=== PATIENT | female | born 1955 | race Caucasian/White ===

== ENCOUNTER → 2016-05-22 | Day surgery (SDC) | payer OTHER ==
[~2016-05-22] MED LIST: THROMBIN (RECOMBINANT) 5,000 UNIT VIAL TP ONE
--- NOTE | 2016-05-22 10:54 | MA ---
Diagnostic Digital Right Mammogram History: Post stereotactic biopsy Comparison:April 19 and 2015 Technique: 2 views. Breast Density: C Findings: The calcifications have been adequately sampled.. Impression:Excellent status. We will await histologic evaluation. If benign, six-month follow-up mammogram is recommended to reest ablish new baseline.
--- NOTE | 2016-05-22 14:58 | MA ---
Stereotactic Core Biopsy Right Breast History: Suspicious microcalcifications right breast. Technique: Following informed consent (which included infection, bleeding and failure to obtain suffi cient specimens for diagnosis), the patient was placed prone on the stereotactic core biopsy table an d the breast was suspended through the open space in the table. A group of calcifications was identif ied. These microcalcifications were localized from a lateral to medial approach. The skin was then pr epped in sterile fashion. Following local anesthesia with 1% lidocaine, lidocaine mixed with epinephr ine was injected deeper within the breast tissue. A small skin chepe was placed on the skin surface t hrough which the 9-gauge Suros vacuum-assisted core biopsy needle was advanced to the appropriate dep th. Following confirmation of the microcalcifications adjacent to the needle, core biopsy samples wer e obtained. A subsequent specimen radiograph was obtained and reviewed. A Suros sterile clip was then placed in the biopsy bed. A stereo pair of images were obtained confirming the clip deployment. Nacho zackary was then injected into the biopsy bed. The patient was sent for a postprocedural mammogram to do cument clip placement and to look for postprocedural hematoma. She was then discharged without compli cation, with instructions to call us with any thoughts, complications or concerns. Impression: Successful stereotactic core biopsy of microcalcifications right breast. Specimen radiograph: Multiple branching microcalcifications are present in the specimen. Recommendation: Assuming a benign diagnosis, then a six-month follow-up right mammogram is recommende d to reestablish new baseline.
== END | disposition home or self-care (01) ==
LOC: FIMAGING 08:27
PROVIDERS: ATTEND Radiology Diagnostic Radiology
PROC: 0HBT0ZX Excision of Right Breast, Open Approach, Diagnostic (ICD-10-PCS; principal; 2016-05-22)
DX: R92.1 Mammographic calcification found on diagnostic imaging of breast (principal); Z80.3 Family history of malignant neoplasm of breast
CPT/HCPCS: G0206

== ENCOUNTER → 2018-02-23 | Outpatient (CLI) | payer OTHER | LOC: BRMIMAGING 14:34 | PROVIDERS: ATTEND Physician Assistant Medical | DX: Z12.31 Encounter for screening mammogram for malignant neoplasm of breast (principal); Z85.3 Personal history of malignant neoplasm of breast ==